=== PATIENT | male | born 1950 | race Caucasian/White ===

== ENCOUNTER → 2017-09-27 | Day surgery (SDC) | payer MEDICARE, OTHER ==
[~2017-09-27] MED LIST: ASPI-482 PO; EZET10TA18 PO; LIDOCAINE 2% PF Vial for OR 5 ML VIAL. ONE; LISI10TA2 PO; PROPOFOL 40 ML IV ONE; TEST5GEL TD
== END | disposition home or self-care (01) ==
LOC: SURG 08:55
PROVIDERS: ATTEND Surgery
DX: Z08 Encounter for follow-up examination after completed treatment for malignant neoplasm (principal); Z85.038 Personal history of other malignant neoplasm of large intestine; I10 Essential (primary) hypertension; E78.00 Pure hypercholesterolemia, unspecified; J44.9 Chronic obstructive pulmonary disease, unspecified; Z98.890 Other specified postprocedural states
CPT/HCPCS: 45378; J2704; J2001

== ENCOUNTER 2017-10-06 07:04 | Emergency (ER) | payer MEDICARE, OTHER ==
[~2017-10-06 07:04] MED LIST changes: -LIDOCAINE 2% PF Vial for OR 5 ML VIAL. ONE; -PROPOFOL 40 ML IV ONE
[2017-10-06 07:10] VITALS: BP 158/77
[2017-10-06] MEDS ORDERED: FAMOTIDINE 20 MG/2 ML VIAL IVP ONE (07:45)
[2017-10-06] MEDS ORDERED: IV NORMAL SALINE 1,000ML 1,000 ML IV SCH (07:45)
[2017-10-06] MEDS ORDERED: IOHEXOL 240 MG/ML 50ML VIAL. PO ONE (07:45)
[2017-10-06] MEDS ORDERED: IOHEXOL 300 MG/ML 75 ML VIAL. IV ONE (07:45)
[2017-10-06] MEDS ORDERED: ONDANSETRON PF 4 MG/2 ML VIAL. IV ONE (07:45)
[2017-10-06 07:56] LABS: BASO # 0.1 x10^3/uL (0.0-0.2); BASO % 0 % (0-3); EOS % 0 % (0-3); HEMATOCRIT 46.9 % (39.0-53.0); HEMOGLOBIN 16.1 g/dL (13.0-17.5); LYMPH # 0.8 x10^3/uL (1.0-4.8); LYMPH % 5 % (24-48); MEAN CORPUSCULAR HEMOGLOBIN 34 pg (25-35); MEAN CORPUSCULAR HGB CONC 34 g/dL (31-37); MEAN CORPUSCULAR VOLUME 100 fL (79-100); MONO # 0.9 x10^3/uL (0.0-1.1); MONO % 6 % (0-9); NEUT # 13.5 x10^3uL (1.8-7.7); NEUT % 89 % (31-73); PLATELET COUNT 263 x10^3/uL (140-400); RED BLOOD COUNT 4.71 x10^6/uL (4.30-5.70); RED CELL DISTRIBUTION WIDTH 13.4 % (11.5-14.5); WHITE BLOOD COUNT 15.2 x10^3/uL (4.0-11.0)
--- NOTE | 2017-10-06 08:02 | PHYS DOC ---
General Chief Complaint: ABDOMINAL PAIN Stated Complaint: ABDOM PAIN Time Seen by MD: 07:20 Source: patient Exam Limitations: no limitations Problems: History of Present Illness Initial Comments Patient is a 67-year-old male who comes to the ED complaining of abdominal discomfort. Patient states that he had a colonoscopy on September 27 as a follow-up after rectal cancer chemotherapy and radiation treatments. He says since the colonoscopy he's had scant bowel movements despite having a good appetite with normal by mouth intake. He's been passing some gas, he's had abdominal bloating and "feels full", he's been belching and had one episode of nonbloody emesis this morning. He's tried Dulcolax at home without any relief. He says he's had many colonoscopies in the past and has never had this happen. ED vitals: 98.2, 93, 20, 156/77, 98% room air Timing/Duration: 1 week Severity: severe Modifying Factors: worse with eating, worse with movement Associated Symptoms: nausea/vomiting, other Allergies: Coded Allergies: No Known Drug Allergies (Unverified , 03/08/14) Past Medical History Medical History: other (anemia, neck and colon cancer, COPD, hyperlipidemia, hypertension, HPV) Surgical History: other (radical neck, herniorrhaphy) Social History Smoker: cigarettes Alcohol: occasionally (history of heavy alcohol use in the past) Drugs: none Review of Systems Constitutional: denies chills, denies diaphoresis, denies fever, denies malaise Respiratory: denies cough, denies shortness of breath Cardiovascular: denies chest pain, denies palpitations Gastrointestinal: see HPI Genitourinary: denies dysuria, denies frequency, denies hematuria Musculoskeletal: denies back pain, denies joint swelling, denies neck pain Psychiatric/Neurological: denies headache, denies numbness Hematologic/Lymphatic: see HPI Physical Exam General Appearance: no apparent distress, thin Eyes: bilateral eye normal inspection, bilateral eye PERRL, bilateral eye EOMI Ear, Nose, Throat: hearing grossly normal, normal ENT inspection, normal pharynx Neck: non-tender, supple Respiratory: normal breath sounds, no respiratory distress Cardiovascular: normal peripheral pulses, regular rate, rhythm Gastrointestinal: soft (distended/tympanic, borborygmi, mildly TTP no r/g/mass) Rectal: deferred Back: no CVA tenderness, no vertebral tenderness Extremities: non-tender, normal inspection Neurologic/Psychiatric: cruise agent II-XII nml as tested, no motor/sensory deficits, alert, normal mood/affect, oriented x 3 Skin: normal color, warm/dry Orders, Labs, Meds PATIENT: JULIET ARMAS ACCOUNT: [id number] : 1950 LOCATION: ER AGE: 67 SEX: M EXAM STATUS: REG ER ORD. PHYSICIAN: REEMA GRAHAM DO REASON: colonoscopy last week, no BM, bloating, n/v obstruction vs other PROCEDURE: CT ABD PELV W/ORAL&IV CONTRAST EXAM: Abdomen and pelvis CT with intravenous contrast. HISTORY: Pain and vomiting. Rectal cancer. TECHNIQUE: Computed tomographic images of the abdomen and pelvis were obtained following the administration of 75 cc Omnipaque 300 intravenous contrast. Multiplanar reformatting was performed. COMPARISON: None. FINDINGS: Evaluation of the lower thorax demonstrates no infiltrate, effusion or suspicious pulmonary nodule. The heart is normal in size. There is a small hiatal hernia. There are small hypodense lesions within the left hepatic lobe, the largest of which measures 8 mm. These are difficult to characterize given their size. The gallbladder, pancreas, spleen are unremarkable. There is a 1.5 cm hypodense nodule within the right adrenal gland. There is slight nodular thickening of the medial limb of the left adrenal gland, without a discrete lesion. There are tiny cortical cyst within the lower pole of the left kidney. There is also tiny cyst within the medial upper mid zone of the right kidney. There is a cluster of nonobstructing stones within the lower pole the right kidney, the largest of which measures 5 mm. There is no evidence of obstructive uropathy. The bladder is unremarkable. There are distended air and fluid filled loops of small bowel throughout the abdomen. There is a transition point to decompressed loops of small bowel within the right lower quadrant. There is a moderate amount of stool throughout the colon. There is a bowel anastomosis within the ventral right upper quadrant. There is a surgical anastomosis involving the rectosigmoid junction. The prostate is prominent in size. There is a small amount of nonspecific pelvic free fluid. There is aortic and aortic branch vessel atherosclerosis. There is slight increased fat within the right inguinal canal without significant herniation. No pathologically enlarged lymph node is seen. There are degenerative changes throughout the spine. There is no suspicious osseous lesion. IMPRESSION: 1. Small bowel obstruction. There is a transition point to decompressed small bowel within the right lower quadrant. 2. Evidence of prior partial bowel resection. 3. Right nephrolithiasis and tiny renal cysts. 4. Small hypodense lesions within the liver, the largest of which measures 8 mm within the left hepatic lobe. These are too small to characterize. Given a history of primary malignancy, the differential includes cysts, hemangiomas as well as liver metastases. 5. Small hiatal hernia. 6. Moderate colonic stool. PQRS Compliance Statement: One or more of the following individualized dose reduction techniques were utilized for this examination: 1. Automated exposure control 2. Adjustment of the mA and/or kV according to patient size 3. Use of iterative reconstruction technique DICTATED AND SIGNED BY: CARLOS ALBERTO GAVIRIA MD DATE: 10/06/17 0851 CC: ZACKERY CASE DO; REEMA GRAHAM DO ~ WBC 15.2, Ca 10.4 otherwise labs unremarkable. IMPRESSIONS: 1. Small bowel obstruction. There is a transition point to decompressed small bowel within the right lower quadrant. 2. Small hypodense lesions within the liver, given a history of primary malignancy, the differential includes cysts, hemangiomas as well as liver metastases. 3. Leukocytosis 4. H/o neck/colon CA s/p radical neck, chemo/rad 5. Tobaccoism 0919: I discussed the patient with distribution center supervisor hospitalist Dr. Travis at [facility]. After thorough discussion of the patient and he feels that the patient would be better served at [facility] where he would have access to general surgery and hematology oncology services. 0925: I discussed the patient with Dr. Munoz distribution center supervisor hospitalist at [facility]. After thorough discussion of the patient she accepts him for EMS transport to [facility] for inpatient [facility] admission. Patient is agreeable. Departure Time of Disposition: 09:29 Disposition: 02 XFER SHT-TRM HOSP Diagnosis: SBO Condition: STABLE Additional Instructions: EMS transfer to [facility] Dr Munoz is accepting. REEMA GRAHAM DO Oct 06, 2017 08:02
[2017-10-06 08:08] LABS: ALBUMIN 4.3 g/dL (3.4-5.0); ALBUMIN/GLOBULIN RATIO 1.3 (1.0-1.7); CALCIUM 10.4 mg/dL (8.5-10.1); CREATININE 1.1 mg/dL (0.7-1.3); GFR 66.8; POTASSIUM 4.4 mmol/L (3.5-5.1); TOTAL BILIRUBIN 0.6 mg/dL (0.2-1.0); TOTAL PROTEIN 7.7 g/dL (6.4-8.2)
[2017-10-06 08:28] LABS: % LYMPHS 2 % (24-48); % MONOS 8 % (0-10); % SEGS 90 % (35-66)
[2017-10-06 08:29] LABS: PLT ESTIMATE ADEQUATE (ADEQUATE); TOXIC GRANULATION SLIGHT
--- NOTE | 2017-10-06 09:01 | RAD ---
EXAM: Abdomen and pelvis CT with intravenous contrast. HISTORY: Pain and vomiting. Rectal cancer. TECHNIQUE: Computed tomographic images of the abdomen and pelvis were obtained following the administration of 75 cc Omnipaque 300 intravenous contrast. Multiplanar reformatting was performed. COMPARISON: None. FINDINGS: Evaluation of the lower thorax demonstrates no infiltrate, effusion or suspicious pulmonary nodule. The heart is normal in size. There is a small hiatal hernia. There are small hypodense lesions within the left hepatic lobe, the largest of which measures 8 mm. These are difficult to characterize given their size. The gallbladder, pancreas, spleen are unremarkable. There is a 1.5 cm hypodense nodule within the right adrenal gland. There is slight nodular thickening of the medial limb of the left adrenal gland, without a discrete lesion. There are tiny cortical cyst within the lower pole of the left kidney. There is also tiny cyst within the medial upper mid zone of the right kidney. There is a cluster of nonobstructing stones within the lower pole the right kidney, the largest of which measures 5 mm. There is no evidence of obstructive uropathy. The bladder is unremarkable. There are distended air and fluid filled loops of small bowel throughout the abdomen. There is a transition point to decompressed loops of small bowel within the right lower quadrant. There is a moderate amount of stool throughout the colon. There is a bowel anastomosis within the ventral right upper quadrant. There is a surgical anastomosis involving the rectosigmoid junction. The prostate is prominent in size. There is a small amount of nonspecific pelvic free fluid. There is aortic and aortic branch vessel atherosclerosis. There is slight increased fat within the right inguinal canal without significant herniation. No pathologically enlarged lymph node is seen. There are degenerative changes throughout the spine. There is no suspicious osseous lesion. IMPRESSION: 1. Small bowel obstruction. There is a transition point to decompressed small bowel within the right lower quadrant. 2. Evidence of prior partial bowel resection. 3. Right nephrolithiasis and tiny renal cysts. 4. Small hypodense lesions within the liver, the largest of which measures 8 mm within the left hepatic lobe. These are too small to characterize. Given a history of primary malignancy, the differential includes cysts, hemangiomas as well as liver metastases. 5. Small hiatal hernia. 6. Moderate colonic stool. PQRS Compliance Statement: One or more of the following individualized dose reduction techniques were utilized for this examination: 1. Automated exposure control 2. Adjustment of the mA and/or kV according to patient size 3. Use of iterative reconstruction technique
== END 2017-10-06 10:00 | disposition short-term general hospital (02) ==
LOC: ER 07:04
DX: K56.609 Unspecified intestinal obstruction, unspecified as to partial versus complete obstruction (principal); C20 Malignant neoplasm of rectum; C78.7 Secondary malignant neoplasm of liver and intrahepatic bile duct; D72.829 Elevated white blood cell count, unspecified; E78.5 Hyperlipidemia, unspecified; J44.9 Chronic obstructive pulmonary disease, unspecified; I10 Essential (primary) hypertension; F17.210 Nicotine dependence, cigarettes, uncomplicated; Z92.21 Personal history of antineoplastic chemotherapy
CPT/HCPCS: 36415; 74177; 80053; 82550; 83690; 85007; 85025; 96361; 96374; 96375; 99285; J2405; J3010; Q9967; S0028; J7030